=== PATIENT | female | born 1970 | race Two or more races ===

== ENCOUNTER 2018-12-08 17:37 | Emergency (ER) | payer OTHER, MEDICAID ==
[~2018-12-08] VITALS: Ht 165.1 cm; Wt 64.9 kg
[2018-12-08 17:41] VITALS: BP_SYST 151
--- NOTE | 2018-12-08 17:51 | NUR ---
Patient to ER bed 04 to gown for evaluation. Side rails up.
--- NOTE | 2018-12-08 17:53 | NUR ---
CYNTHIA Reyna at bedside examining patient.
--- NOTE | 2018-12-08 17:58 | NUR ---
Patient is awake, alert, and oriented x4. She is complaining of migraine 10/10. Patient reports a history of migraines, fibromyalgia, neck/back pain, , knee surgery, and cervical ablation.
[2018-12-08 18:21] LABS: HEMATOCRIT 38.9 % (36-48); HEMOGLOBIN 12.8 g/dL (12.0-16.0); MEAN CORPUSCULAR HEMOGLOBIN 30 pg (27-31); MEAN CORPUSCULAR VOLUME 91 fL (79.0-98.0); RED BLOOD CELL COUNT(AUTO) 4.26 MIL/uL (4.2-6.2); WHITE BLOOD COUNT (AUTO) 5.6 K/uL (4.8-10.8)
[2018-12-08 18:22] LABS: BASOPHILS # (AUTO) 0.1 K/uL (0.0-0.2); EOSINOPHILS # (AUTO) 0.5 K/uL (0.0-0.4); EOSINOPHILS % (AUTO) 9.5 % (0.0-4.0); LYMPHOCYTES # (AUTO) 1.9 K/uL (1.0-5.5); LYMPHOCYTES % (AUTO) 33.2 % (20.5-51.5); MEAN CORPUSCULAR HGB CONC 33 % (32-36); MONOCYTES # (AUTO) 0.3 K/uL (0.0-1.0); MONOCYTES % (AUTO) 5.2 % (1.7-9.3); NEUTROPHILS # (AUTO) 2.8 K/uL (1.8-7.7); NEUTROPHILS % (AUTO) 50.1 % (40.0-70.0); PLATELET COUNT (AUTO) 273 K/uL (130-430); RED CELL DISTRIBUTION WIDTH 14.3 % (9.0-15.0)
[2018-12-08 18:31] LABS: CALCIUM 8.7 mg/dL (8.4-11.0); CREATININE 0.6 mg/dL (0.55-1.30); POTASSIUM 3.7 mmol/L (3.5-5.1)
[2018-12-08 18:47] LABS: ALBUMIN 3.9 g/dL (3.4-4.8); FREE T4 (FREE THYROXINE) 0.5 ng/dL (0.6-1.6); THYROID STIMULATING HORMONE 2.92 uIu/mL (0.34-4.82); TOTAL BILIRUBIN 0.3 mg/dL (0.0-1.0)
[2018-12-08 19:09] VITALS: BP_SYST 142
== END 2018-12-08 19:09 | disposition home or self-care (01) ==
LOC: SED 17:37
DX: G43.909 Migraine, unspecified, not intractable, without status migrainosus (principal); F41.9 Anxiety disorder, unspecified; R03.0 Elevated blood-pressure reading, without diagnosis of hypertension; M79.7 Fibromyalgia; Z88.0 Allergy status to penicillin; Z88.2 Allergy status to sulfonamides
CPT/HCPCS: 36415; 70450-TC; 80053; 81002; 81025; 84439; 84443-TC; 85025; 99284

== ENCOUNTER 2019-02-07 18:42 | Emergency (ER) | payer OTHER, MEDICAID ==
[~2019-02-07] VITALS: Ht 165.1 cm; Wt 65.8 kg
[2019-02-07 19:05] VITALS: BP_SYST 117
== END 2019-02-07 20:50 | disposition left against medical advice (07) ==
LOC: SED 18:42
DX: J02.9 Acute pharyngitis, unspecified (principal); M79.10 Myalgia, unspecified site; R51 Headache; R19.7 Diarrhea, unspecified; R50.9 Fever, unspecified; R10.9 Unspecified abdominal pain; Z53.21 Procedure and treatment not carried out due to patient leaving prior to being seen by health care provider